=== PATIENT | female | born 1975 | race African-American/Black ===

== ENCOUNTER 2016-12-28 00:18 | Emergency (ER) | payer MEDICAID ==
[2016-12-28] MEDS ORDERED: ONDANSETRON 4 MG TAB.RAPDIS PO ONE (01:35)
[2016-12-28] MEDS ORDERED: KETOROLAC TROMETHAMINE 60 MG/2 ML SDV IM ONE (01:35)
[2016-12-28 01:52] LABS: ABSOLUTE BASOPHILS # (AUTO) 0.2 10^3/uL (0.0-0.2); ABSOLUTE EOSINOPHILS # (AUTO) 0.4 10^3/uL (0.0-0.6); ABSOLUTE LYMPHOCYTES (AUTO) 2.3 10^3/uL (0.5-4.7); ABSOLUTE MONOCYTES (AUTO) 0.5 10^3/uL (0.1-1.4); ABSOLUTE NEUT (AUTO) 5.3 10^3/uL (1.7-8.2); BASOPHILS % (AUTO) 1.8 % (0-2); EOSINOPHILS % (AUTO) 4.1 % (0-6); HEMATOCRIT 34.3 % (36.0-47.0); HGB HCT DIFFERENCE 1.7; LYMPHOCYTES % (AUTO) 26.4 % (13-45); MEAN CORPUSCULAR HEMOGLOBIN 29.4 pg (27.0-33.4); MEAN CORPUSCULAR HGB CONC 34.9 g/dL (32.0-36.0); MEAN CORPUSCULAR VOLUME 84 fl (80-97); RED BLOOD COUNT 4.07 10^6/uL (3.72-5.28); RED CELL DISTRIBUTION WIDTH 13.8 % (11.5-14.0); SEGMENTED NEUTROPHILS % (AUTO) 61.7 % (42-78); WHITE BLOOD COUNT 8.6 10^3/uL (4.0-10.5)
--- NOTE | 2016-12-28 01:53 | ER Document Report ---
ED General - General Mode of Arrival: Ambulatory Information source: Patient TRAVEL OUTSIDE OF THE [place] IN LAST 30 DAYS: No <ZELALEM ESTRELLA - Last Filed: 12/28/16 02:32> <BILLIE FRAIRE - Last Filed: 12/28/16 03:47> - General Chief Complaint: Abdominal Pain Stated Complaint: HEADACHE Time Seen by Provider: 12/28/16 01:26 Notes: Patient is a 41 year old female that presents to the emergency department today with complaints of abdominal pain with associated lightheadedness, headache, nausea, and lower back pain. Patient states that she was cooking dinner when these symptoms began. Patient states she went and laid down. Patient states she has had similar abdominal pain in the past when she had a urinary tract infection. Patient states her headache relieved somewhat after ibuprofen. Patient denies vomiting, history of migraine headaches, or dysuria. (ZELALEM ESTRELLA) Past Medical History - General Information source: Patient - Social History Smoking Status: Current Every Day Smoker Cigarette use (# per day): Yes Frequency of alcohol use: None Drug Abuse: None Lives with: Family Family History: Reviewed & Not Pertinent Patient has suicidal ideation: No Patient has homicidal ideation: No - Past Medical History Cardiac Medical History: Reports: Hx Hypertension Past Surgical History: Reports: Hx Cholecystectomy <ZELALEM ESTRELLA - Last Filed: 12/28/16 02:32> Review of Systems - Review of Systems Constitutional: No symptoms reported EENT: No symptoms reported Cardiovascular: See HPI, Lightheaded Respiratory: No symptoms reported Gastrointestinal: See HPI, Abdominal pain, Nausea. denies: Vomiting Genitourinary: denies: Dysuria Female Genitourinary: No symptoms reported Musculoskeletal: See HPI, Back pain Skin: No symptoms reported Hematologic/Lymphatic: No symptoms reported Neurological/Psychological: See HPI, Headaches -: Yes All other systems reviewed and negative <ZELALEM ESTRELLA - Last Filed: 12/28/16 02:32> Physical Exam <ZELALEM ESTRELLA - Last Filed: 12/28/16 02:32> <BILLIE FRAIRE - Last Filed: 12/28/16 03:47> - Vital signs Vitals: Temp Pulse Resp BP Pulse Ox 98.7 F 98 18 161/100 H 100 12/28/16 00:26 12/28/16 00:12/28/16 00:26 12/28/16 00:26 12/28/16 00:26 - Notes Notes: PHYSICAL EXAM GENERAL: Obese. Alert, interacts well. No acute distress. HEAD: Normocephalic, atraumatic. EYES: Pupils equal, round, and reactive to light. Extraocular movements intact. ENT: Oral mucosa moist, tongue midline. NECK: Full range of motion. Supple. Trachea midline. LUNGS: Clear to auscultation bilaterally, no wheezes, rales, or rhonchi. No respiratory distress. HEART: Regular rate and rhythm. No murmurs, gallops, or rubs. ABDOMEN: Epigastric tenderness with palpation, no guarding, rebound, or rigidity. Non-distended. Bowel sounds present in all 4 quadrants. EXTREMITIES: Moves all 4 extremities spontaneously. No edema, radial and dorsalis pedis pulses 2/4 bilaterally. No cyanosis. NEUROLOGICAL: Alert and oriented x3. Normal speech. PSYCH: Normal affect, normal mood. SKIN: Warm, dry, normal turgor. No rashes or lesions noted. (ZELALEM ESTRELLA) Course - Laboratory Result Diagrams: 12/28/16 01:40 12/28/16 01:40 <ZELALEM ESTRELLA - Last Filed: 12/28/16 02:32> - Laboratory Result Diagrams: 12/28/16 01:40 12/28/16 01:40 <BILLIE FRAIRE - Last Filed: 12/28/16 03:47> - Re-evaluation Re-evalutation: 12/28/16 03:45 CBC unremarkable, CMP unremarkable, lipase normal, test negative, urinalysis shows positive nitrates and trace leukocyte esterase, 3+ bacteria, this was sent for culture, headache was treated and completely resolved with Toradol, this also relieved her epigastric abdominal pain, patient was also treated with Macrobid and Pyridium, all of her symptoms are gone, will be discharged home on ibuprofen, Macrobid and Pyridium. (BILLIE FRAIRE) - Vital Signs Vital signs: Temp Pulse Resp BP Pulse Ox 98.7 F 98 18 163/112 H 100 12/28/16 00:26 12/28/16 00:26 12/28/16 00:26 12/28/16 02:31 12/28/16 00:26 - Laboratory Laboratory results interpreted by me: 12/28/16 12/28/16 01:40 01:45 Hct 34.3 L Urine Nitrite POSITIVE H Ur Leukocyte Esterase TRACE H Discharge <ZELALEM ESTRELLA - Last Filed: 12/28/16 02:32> <BILLIE FRAIRE - Last Filed: 12/28/16 03:47> - Discharge Clinical Impression: Epigastric abdominal pain Urinary tract infection Qualifiers: Urinary tract infection type: acute cystitis Hematuria presence: without hematuria Qualified Code(s): N30.00 - Acute cystitis without hematuria Hypertension Qualifiers: Hypertension type: essential hypertension Qualified Code(s): I10 - Essential ( primary) hypertension Headache Qualifiers: Headache type: unspecified Headache chronicity pattern: unspecified pattern Intractability: not intractable Qualified Code(s): R51 - Headache Condition: Stable Disposition: HOME, SELF-CARE Additional Instructions: Please use ibuprofen (Motrin or Advil) 600-800 mg every 8 hours as needed for pain or fever. You may also use acetaminophen (Tylenol) 1000 mg every 4-6 hours as needed for pain or fever. Please be aware that many medications contain acetaminophen, do not exceed a total of 1000 mg of acetaminophen every 6 hours. Please take the Pyridium as directed for pain. Take the Macrobid as directed until it is gone, this is an antibiotic. Prescriptions: Nitrofurantoin/Nitrofuran Mac [Macrobid 100 mg Capsule] 1 tab PO BID #14 capsule Phenazopyridine HCl [Pyridium 200 mg Tablet] 200 mg PO TID #7 tablet Forms: Parent Work Note Scribe Attestation: 12/28/16 03:47 I personally performed the services described in the documentation, reviewed and edited the documentation which was dictated to the scribe in my presence, and it accurately records my words and actions. (BILLIE FRAIRE) Scribe Documentation - Scribe Written by Nguyen:: Nguyen Winchester, 12/28/2016 0240 acting as scribe for :: Juanito <ZELALEM ESTRELLA - Last Filed: 12/28/16 02:32>
[2016-12-28 02:17] LABS: APPEARANCE,URINE SLIGHTLY-CLOUDY; BILIRUBIN,URINE NEGATIVE (NEGATIVE); GLUCOSE, URINE NEGATIVE (NEGATIVE); KETONES,URINE NEGATIVE (NEGATIVE); LEUKOCYTE ESTERASE,URINE TRACE (NEGATIVE); NITRITE,URINE POSITIVE (NEGATIVE); PROTEIN,URINE NEGATIVE (NEGATIVE); URINE SPECIFIC GRAVITY 1.011; UROBILINOGEN,URINE NEGATIVE mg/dL (<2.0)
[2016-12-28] MEDS ORDERED: NITROFURANTOIN MONOHYD/M-CRYST 100 MG CAPSULE PO ONE (02:46)
[2016-12-28] MEDS ORDERED: PHENAZOPYRIDINE HCL 200 MG TABLET PO ONE (02:46)
[2016-12-28 03:18] LABS: ALANINE AMINOTRANSFERASE 21 U/L (9-52); ALBUMIN 3.5 g/dL (3.5-5.0); ALKALINE PHOSPHATASE 117 U/L (38-126); ANION GAP 11 (5-19); ASPARTATE AMINO TRANSFERASE 16 U/L (14-36); BILIRUBIN,DIRECT 0.3 mg/dL (0.0-0.4); BILIRUBIN,TOTAL 0.5 mg/dL (0.2-1.3); BLOOD UREA NITROGEN 12 mg/dL (7-20); CARBON DIOXIDE 27 mmol/L (22-30); CHLORIDE 105 mmol/L (98-107); GLUCOSE 95 mg/dL (75-110); LIPASE 125.6 U/L (23-300); POTASSIUM 3.9 mmol/L (3.6-5.0); SODIUM 142.6 mmol/L (137-145); TOTAL PROTEIN 6.6 g/dL (6.3-8.2)
[2016-12-28 03:55] VITALS: BP 143/99
== END 2016-12-28 03:57 | disposition home or self-care (01) ==
LOC: ER 00:18
DX: N30.00 Acute cystitis without hematuria (principal); I10 Essential (primary) hypertension; R51 Headache; R10.9 Unspecified abdominal pain; R42 Dizziness and giddiness; R11.0 Nausea; F17.210 Nicotine dependence, cigarettes, uncomplicated
CPT/HCPCS: 99284; 96372; 36415; 87086; 83690; 85025; 81025; 87088; 80053; 81001; 87186; J1885; S0119; J3490 ×2; J8499

== ENCOUNTER 2017-07-12 18:38 | Emergency (ER) | payer MEDICAID ==
[2017-07-12] MEDS ORDERED: ONDANSETRON 4 MG TAB.RAPDIS PO ONE (19:28)
--- NOTE | 2017-07-12 19:28 | ER Document Report ---
ED Medical Screen (RME) - General Chief Complaint: Abdominal Pain Stated Complaint: ABDOMINAL PAIN,NAUSEA,SINUS PAIN Time Seen by Provider: 07/12/17 19:21 TRAVEL OUTSIDE OF THE [place] IN LAST 30 DAYS: No - HPI Notes: 07/12/17 19:28 Abdominal pain with nausea sinus pain Past Medical History - Social History Chew tobacco use (# tins/day): No Frequency of alcohol use: None Drug Abuse: None - Past Medical History Cardiac Medical History: Reports: Hx Hypertension Renal/ Medical History: Denies: Hx Peritoneal Dialysis Past Surgical History: Reports: Hx Cholecystectomy Review of Systems - Review of Systems Gastrointestinal: Abdominal pain Physical Exam - Vital signs Vitals: Temp Pulse Resp BP Pulse Ox 98.2 F 91 16 156/115 H 99 07/12/17 18:52 07/12/17 18:52 07/12/17 18:52 07/12/17 18:52 07/12/17 18:52 - General General appearance: Appears well In distress: None - Abdominal Inspection: Obese Course - Vital Signs Vital signs: Temp Pulse Resp BP Pulse Ox 98.2 F 91 16 156/115 H 99 07/12/17 18:52 07/12/17 18:52 07/12/17 18:52 07/12/17 18:52 07/12/17 18:52
[2017-07-12 20:38] LABS: APPEARANCE,URINE SLIGHTLY-CLOUDY; BILIRUBIN,URINE NEGATIVE (NEGATIVE); COLOR,URINE YELLOW; GLUCOSE, URINE NEGATIVE (NEGATIVE); KETONES,URINE NEGATIVE (NEGATIVE); LEUKOCYTE ESTERASE,URINE LARGE (NEGATIVE); NITRITE,URINE POSITIVE (NEGATIVE); PROTEIN,URINE NEGATIVE (NEGATIVE); URINE SPECIFIC GRAVITY 1.012; UROBILINOGEN,URINE NEGATIVE mg/dL (<2.0)
[2017-07-12 20:39] LABS: ABSOLUTE BASOPHILS # (AUTO) 0.1 10^3/uL (0.0-0.2); ABSOLUTE EOSINOPHILS # (AUTO) 0.3 10^3/uL (0.0-0.6); ABSOLUTE LYMPHOCYTES (AUTO) 2.3 10^3/uL (0.5-4.7); ABSOLUTE MONOCYTES (AUTO) 0.4 10^3/uL (0.1-1.4); ABSOLUTE NEUT (AUTO) 6.2 10^3/uL (1.7-8.2); BASOPHILS % (AUTO) 1.3 % (0-2); EOSINOPHILS % (AUTO) 2.9 % (0-6); HEMOGLOBIN 12.1 g/dL (12.0-15.5); MEAN CORPUSCULAR HEMOGLOBIN 29.2 pg (27.0-33.4); MEAN CORPUSCULAR HGB CONC 33.6 g/dL (32.0-36.0); MEAN CORPUSCULAR VOLUME 87 fl (80-97); MONOCYTES % (AUTO) 4.8 % (3-13); PLATELET COUNT 363 10^3/uL (150-450); RED BLOOD COUNT 4.14 10^6/uL (3.72-5.28); RED CELL DISTRIBUTION WIDTH 13.6 % (11.5-14.0); TOTAL CELLS COUNTED % (AUTO) 100 %; WHITE BLOOD COUNT 9.4 10^3/uL (4.0-10.5)
[2017-07-12 20:40] LABS: ALANINE AMINOTRANSFERASE 22 U/L (9-52); ALBUMIN 3.8 g/dL (3.5-5.0); ALKALINE PHOSPHATASE 102 U/L (38-126); ANION GAP 10 (5-19); ASPARTATE AMINO TRANSFERASE 12 U/L (14-36); BILIRUBIN,DIRECT 0.3 mg/dL (0.0-0.4); BILIRUBIN,TOTAL 0.3 mg/dL (0.2-1.3); BLOOD UREA NITROGEN 8 mg/dL (7-20); CALCIUM 9.4 mg/dL (8.4-10.2); CARBON DIOXIDE 27 mmol/L (22-30); CHLORIDE 102 mmol/L (98-107); GLUCOSE 83 mg/dL (75-110); LIPASE 82.6 U/L (23-300); POTASSIUM 3.7 mmol/L (3.6-5.0); SODIUM 139.3 mmol/L (137-145); TOTAL PROTEIN 7.1 g/dL (6.3-8.2)
[2017-07-12] MEDS ORDERED: NITROFURANTOIN MONOHYD/M-CRYST 100 MG CAPSULE PO ONE (22:03)
[2017-07-12] MEDS ORDERED: SULFAMETHOXAZOLE/TRIMETHOPRIM 800-160 MG TABLET PO ONE (22:05)
[2017-07-12] MEDS ORDERED: ONDANSETRON ODT 4 MG TAB (6 TAB/ER DISP) PO PRN (22:10)
--- NOTE | 2017-07-12 22:10 | ER Document Report ---
ED GI/ - General Chief Complaint: Abdominal Pain Stated Complaint: ABDOMINAL PAIN,NAUSEA,SINUS PAIN Time Seen by Provider: 07/12/17 19:21 Mode of Arrival: Ambulatory Information source: Patient TRAVEL OUTSIDE OF THE [place] IN LAST 30 DAYS: No Past Medical History - Social History Smoking Status: Current Every Day Smoker Chew tobacco use (# tins/day): No Frequency of alcohol use: None Drug Abuse: None Family History: Reviewed & Not Pertinent Patient has suicidal ideation: No Patient has homicidal ideation: No - Past Medical History Cardiac Medical History: Reports: Hx Hypertension Renal/ Medical History: Denies: Hx Peritoneal Dialysis Past Surgical History: Reports: Hx Cholecystectomy Physical Exam - Vital signs Vitals: Temp Pulse Resp BP Pulse Ox 98.2 F 91 16 156/115 H 99 07/12/17 18:52 07/12/17 18:52 07/12/17 18:52 07/12/17 18:52 07/12/17 18:52 Course - Vital Signs Vital signs: Temp Pulse Resp BP Pulse Ox 98.2 F 91 16 156/115 H 99 07/12/17 18:52 07/12/17 18:52 07/12/17 18:52 07/12/17 18:52 07/12/17 18:52 - Laboratory Result Diagrams: 07/12/17 20:15 07/12/17 20:15 Laboratory results interpreted by me: 07/12/17 07/12/17 20:15 20:15 AST 12 L Urine Blood SMALL H Urine Nitrite POSITIVE H Ur Leukocyte Esterase LARGE H Discharge - Discharge Clinical Impression: Essential hypertension Urinary tract infection Qualifiers: Urinary tract infection type: acute cystitis Hematuria presence: without hematuria Qualified Code(s): N30.00 - Acute cystitis without hematuria Condition: Stable Disposition: HOME, SELF-CARE Instructions: Abdominal Pain ([facility]), Trimethoprim-Sulfa ([facility]), Urinary Tract Infection ([facility]), Antinausea Medication ([facility]) Additional Instructions: REST, DRINK PLENTY OF FLUIDS. TAKE YOUR ANTIBIOTIC DIRECTED, BEGINNING TOMORROW A.M. CONTINUE YOUR OTHER MEDS USUAL. FOLLOW UP WITH YOUR PRIMARY CARE PROVIDER FOR RE-CHECK OF BLOOD PRESSURE, YOU MAY NEED TO HAVE YOUR MEDS ADJUSTED. RETURN TO E.R. IF PROBLEMS. Prescriptions: Sulfamethoxazole/Trimethoprim [Sulfamethoxazole-Tmp Ds Tablet] 1 each PO BID # 20 tablet
[2017-07-12 22:20] VITALS: BP 148/104
== END 2017-07-12 22:26 | disposition home or self-care (01) ==
LOC: ER 18:38
DX: N30.00 Acute cystitis without hematuria (principal); I10 Essential (primary) hypertension; Z90.49 Acquired absence of other specified parts of digestive tract
CPT/HCPCS: 99284; 36415; 87086; 84702; 83690; 85025; 87088; 80053; 81001; 87186; S0119; J3490

== ENCOUNTER 2017-08-17 21:20 | Emergency (ER) | payer MEDICAID ==
--- NOTE | 2017-08-17 23:30 | ER Document Report ---
HPI - HPI Pain Level: 3 Notes: Patient is a 41-year-old female with a history of hypertension who presents to the ED complaining of nasal congestion/discharge, sinus pressure and pain, postnasal drip, left ear "clogged" 1 week. Patient states that on occasion she will have a sinus headache, but currently does not have a headache. Patient states that she did not take her evening dose of her blood pressure medication, lisinopril. Patient states that when she gets the symptoms usually goes to her primary care doctor and gets an antibiotic which is what she wants today. She denies any drug allergies. No other concerns or complaints at this time. Denies any headache, fever, neck pain, sore throat, chest pain, palpitations, syncope, cough, shortness of breath, wheeze, dyspnea, abdominal pain, nausea/vomiting/diarrhea, urinary retention, dysuria, hematuria, or rash. - ROS Systems Reviewed and Negative: Yes All other systems reviewed and negative Past Medical History - Social History Smoking Status: Never Smoker Family History: Reviewed & Not Pertinent - Past Medical History Cardiac Medical History: Reports: Hx Hypertension Renal/ Medical History: Denies: Hx Peritoneal Dialysis Past Surgical History: Reports: Hx Cholecystectomy Vertical Provider Document - CONSTITUTIONAL Agree With Documented VS: Yes Notes: PHYSICAL EXAMINATION: GENERAL: Well-appearing, well-nourished and in no acute distress. A&Ox4. Answers questions appropriately. Moves comfortably w/o notable distress HEAD: Atraumatic, normocephalic. EYES: Pupils equal round and reactive to light, extraocular movements intact, sclera anicteric, conjunctiva are normal. ENT: EAC clear b/l. TM's intact b/l without erythema, fluid, or perforation. Nares patent and with clear discharge. oropharynx no erythema without exudates. No tonsilar hypertrophy without erythema or exudate. No palatine shift. Uvula midline. No tongue protrusion. No drooling, hoarseness, or airway compromise. Moist mucous membranes. + maxillary sinus tenderness. NECK: Normal range of motion, supple without lymphadenopathy. No rigidity/ meningismus. LUNGS: Breath sounds clear to auscultation bilaterally and equal. No wheezes rales or rhonchi. No retractions HEART: Regular rate and rhythm without murmurs, rubs, gallops. NEUROLOGICAL: Cranial nerves 2-12 intact. Normal speech, normal gait. Normal sensory, motor exams PSYCH: Normal mood, normal affect. SKIN: Warm, Dry, normal turgor, no rashes or lesions noted. - INFECTION CONTROL TRAVEL OUTSIDE OF THE [place] IN LAST 30 DAYS: No Course - Re-evaluation Re-evalutation: 08/17/17 23:28 Patient is an afebrile, well-hydrated, 41-year-old female who presents to the ED with an acute sinusitis, suspect viral. Vitals are acceptable. PE is otherwise unremarkable for any focal neurological deficits. Patient has no significant tachycardia, tachypnea, or hypoxia. She is tolerating p.o. without any difficulties and is nontoxic-appearing. No labs or imaging warranted at this time based on H&P. I did offer to give patient her evening dose of her lisinopril, but patient declined and states that she will take it when she gets home. Advised patient that I do believe this illness to be viral, but patient is being very persistent and demanding about her antibiotic. Advised patient that I will only send her home with a "pocket prescription" that she may fill with ongoing/worsening symptoms 2-3 days. Conservative measures otherwise for symptoms. Low suspicion for any sepsis, meningitis, or other acute systemic emergent condition at this time. Recheck with your PCM in 2-3 days. Return to the ED with any worsening/concerning symptoms otherwise as reviewed discharge. Patient is in agreement. - Vital Signs Vital signs: Temp Pulse Resp BP Pulse Ox 98.1 F 92 20 156/114 H 99 08/17/17 21:53 08/17/17 21:53 08/17/17 21:53 08/17/17 21:53 08/17/17 21:53 Discharge - Discharge Clinical Impression: Acute sinusitis Qualifiers: Sinusitis location: maxillary Recurrence: not specified as recurrent Qualified Code(s): J01.00 - Acute maxillary sinusitis, unspecified Condition: Stable Disposition: HOME, SELF-CARE Instructions: Headache ([facility]), Sinusitis ([facility]) Additional Instructions: Maintain adequate fluid and food intake Take home medications as directed [id number] meds as needed for cold symptoms Low sodium/fat diet Exercise regularly Monitor blood pressure daily and keep a log Monitor symptoms for any acute changes Recheck with your PCM in 2-3 days Return to the ED with any worsening symptoms and/or development of fever, headache, chest pain, palpitations, syncope, shortness of breath, trouble breathing, abdominal pain, n/v/d, blood in stool/urine, loss of control of bowel /bladder, urinary retention, muscle weakness/paralysis, numbness/tingling, or other worsening symptoms that are concerning to you. Prescriptions: Amox Tr/Potassium Clavulanate [Augmentin 875-125 Tablet] 1 tab PO BID 10 Days # 20 tablet Forms: Elevated Blood Pressure Referrals: FOZIA OLVERA DO [ASSOCIATE] - Follow up as needed
[2017-08-17 23:52] VITALS: BP 155/115
== END 2017-08-17 23:52 | disposition home or self-care (01) ==
LOC: ER 21:20
DX: J01.00 Acute maxillary sinusitis, unspecified (principal); I10 Essential (primary) hypertension; Z90.49 Acquired absence of other specified parts of digestive tract
CPT/HCPCS: 99283

== ENCOUNTER 2017-11-30 13:36 | Emergency (ER) | payer MEDICAID, OTHER ==
[2017-11-30 14:10] VITALS: BP 154/109
[2017-11-30] MEDS ORDERED: ASPIRIN 81 MG TABLET, CHEWABLE PO ONE (14:18)
--- NOTE | 2017-11-30 14:37 | EKG REPORT ---
SEVERITY:- ABNORMAL ECG - SINUS TACHYCARDIA NONSPECIFIC T ABNORMALITIES, INFERIOR LEADS : Confirmed by: Helen Manley MD 30-Nov-2017 14:36:34
--- NOTE | 2017-11-30 14:42 | ER Document Report ---
ED General - General Chief Complaint: Chest Pain Stated Complaint: PAIN ALL OVER Time Seen by Provider: 11/30/17 14:40 Notes: Patient is a 41-year-old female that presents to the emergency department for chief complaint of anxiety and pain all over. Patient states she has been complaining of pain over her whole body that started earlier today, states she has had back pain, chest pain, abdominal pain, pain in her arms and legs, cough and congestion. She is also had decreased appetite over the last several days. Denies any worsening of her symptoms with exertion. Denies vomiting or diaphoresis. She does have fibromyalgia, which occasionally can feel like this but that seems to be a little bit worse today. She also states she has been feeling much more anxious recently and recently she did see the mental health clinic yesterday, and does have an appointment next week with a psychiatrist, and she has been feeling rather anxious about this whole process. Denies any shortness of breath, dysuria, hematuria, and states that she is not . Past Medical History: Fibromyalgia, anxiety, hypertension Past Surgical History: Cholecystectomy, Social History: Admits to smoking cigarettes, denies alcohol or drug use Family History: Reviewed and noncontributory for presenting illness Allergies: Reviewed, see documented allergy list. REVIEW OF SYSTEMS: Unless otherwise stated in this report the patient's positive and negative responses for review of systems for constitutional, eyes, ENT, cardiovascular, respiratory, gastrointestinal, neurological, genitourinary, musculoskeletal, and integumentary systems and related systems to the presenting problem are either as stated in the HPI or were not pertinent or were negative for the symptoms and/or complaints related to the presenting medical problem. PHYSICAL EXAMINATION: Vital signs reviewed, nursing noted reviewed. GENERAL: Well-appearing, well-nourished and in no acute distress. HEAD: Atraumatic, normocephalic. EYES: Eyes appear normal, extraocular movements intact, sclera anicteric, conjunctiva are normal. ENT: nares patent, oropharynx clear without exudates. Moist mucous membranes. NECK: Normal range of motion, supple without lymphadenopathy LUNGS: Breath sounds clear to auscultation bilaterally and equal. No wheezes rales or rhonchi. Reproducible chest wall tenderness HEART: Regular rate and rhythm without murmurs ABDOMEN: Soft, nontender, normoactive bowel sounds. No rebound, guarding, or rigidity. No masses appreciated. EXTREMITIES: Trigger point tenderness bilaterally in the upper and lower extremities, good range of motion, no pitting or edema. NEUROLOGICAL: No focal neurological deficits. Moves all extremities spontaneously Motor and sensory grossly intact on exam. PSYCH: Normal mood, normal affect. SKIN: Warm, Dry, normal turgor, no rashes or lesions noted on exposed skin TRAVEL OUTSIDE OF THE [place] IN LAST 30 DAYS: No - Related Data Allergies/Adverse Reactions: prednisone Adverse Reaction (Verified 08/17/17 23:41) Shortness of Breath Past Medical History - Social History Smoking Status: Current Every Day Smoker Family History: Reviewed & Not Pertinent - Past Medical History Cardiac Medical History: Reports: Hx Hypertension Renal/ Medical History: Denies: Hx Peritoneal Dialysis Psychiatric Medical History: Reports: Hx Depression Past Surgical History: Reports: Hx Cholecystectomy Physical Exam - Vital signs Vitals: Temp Pulse Resp BP Pulse Ox 98.2 F 95 16 154/109 H 100 11/30/17 14:09 11/30/17 14:09 11/30/17 14:09 11/30/17 14:09 11/30/17 14:09 Course - Re-evaluation Re-evalutation: Patient seen and examined vital signs reviewed. Laboratory data and imaging were ordered as appropriate for the patient's presenting symptoms and complaint, with consideration of any critical or life threatening conditions that may be associated with their obtained history and exam as noted above. Patient was treated with IV fluids, Ativan, Zofran Results were reviewed when available and demonstrated unremarkable blood work, negative chest x-ray, negative troponin The patient was re-evaluated and was improved Evaluation was most consistent with viral syndrome, versus fibromyalgia flare, and anxiety Results were discussed with the patient at this point, after careful consideration I feel that that patient can be discharged from the emergency department, the patient was educated treatments and reasons to return to the emergency department based on their presumed diagnosis as noted above, they were advised to followup with a primary care physician in 2-3 days. Patient was agreeable to plan of care. *Note is created using voice recognition software and may contain spelling, syntax or grammatical errors. Laboratory 11/30/17 11/30/17 11/30/17 14:49 14:49 14:49 WBC 8.0 RBC 4.30 Hgb 12.6 Hct 37.0 MCV 86 MCH 29.4 MCHC 34.2 RDW 14.4 H Plt Count 382 Seg Neutrophils % 69.6 Lymphocytes % 21.1 Monocytes % 6.5 Eosinophils % 1.8 Basophils % 1.0 Absolute Neutrophils 5.6 Absolute Lymphocytes 1.7 Absolute Monocytes 0.5 Absolute Eosinophils 0.1 Absolute Basophils 0.1 Sodium 140.1 Potassium 4.4 Chloride 107 Carbon Dioxide 24 Anion Gap 9 BUN 12 Creatinine 1.05 Est GFR ( Amer) > 60 Est GFR (Non-Af Amer) 58 L Glucose 97 Calcium 9.9 Total Bilirubin 0.7 Direct Bilirubin 0.6 H Neonat Total Bilirubin Not Reportable Neonat Direct Bilirubin Not Reportable Neonat Indirect Bili Not Reportable AST 20 ALT 20 Alkaline Phosphatase 88 Creatine Kinase 60 CK-MB (CK-2) < 0.22 Troponin I < 0.012 Total Protein 7.5 Albumin 4.1 Chest X-Ray 11/30/17 14:18 IMPRESSION: NO ACUTE RADIOGRAPHIC FINDING IN THE CHEST. - Vital Signs Vital signs: Temp Pulse Resp BP Pulse Ox 98.2 F 95 14 154/109 H 98 11/30/17 14:09 11/30/17 14:09 11/30/17 14:41 11/30/17 14:09 11/30/17 14:41 - Laboratory Result Diagrams: 11/30/17 14:49 11/30/17 14:49 Laboratory results interpreted by me: 11/30/17 11/30/17 14:49 14:49 RDW 14.4 H Est GFR (Non-Af Amer) 58 L Direct Bilirubin 0.6 H - EKG Interpretation by Me Additional EKG results interpreted by me: EKG demonstrates sinus tachycardia with a ventricular rate of 106 bpm, normal axis, normal intervals, no ST changes noted, no prior EKG available for comparison. Discharge - Discharge Clinical Impression: Myalgia, Anxiety Condition: Stable Disposition: HOME, SELF-CARE Instructions: Anxiety ([facility]) Additional Instructions: Please return to the emergency department if you have any worsening, or concern of your symptoms. Please return to the emergency department if you develop chest pain, difficulty breathing, severe abdominal pain, or ongoing vomiting. Please follow-up with your primary care physician in 2-3 days and any other recommended physicians. If prescribed, take all medications as directed. If you have any questions or concerns do not hesitate to return the emergency department for evaluation. Referrals: JOHN JONES MD [ACTIVE STAFF] - Follow up as needed (or your primary care. )
[2017-11-30] MEDS ORDERED: LORAZEPAM 1 MG TABLET PO ONE (14:54)
[2017-11-30] MEDS ORDERED: NORMAL SALINE 1000 ML 1,000 ML IV ONE (14:55)
[2017-11-30] MEDS ORDERED: ONDANSETRON HCL INJ/PF 4 MG/2 ML SDV IV ONE (14:55)
[2017-11-30 15:10] LABS: ABSOLUTE BASOPHILS # (AUTO) 0.1 10^3/uL (0.0-0.2); ABSOLUTE EOSINOPHILS # (AUTO) 0.1 10^3/uL (0.0-0.6); ABSOLUTE LYMPHOCYTES (AUTO) 1.7 10^3/uL (0.5-4.7); ABSOLUTE MONOCYTES (AUTO) 0.5 10^3/uL (0.1-1.4); ABSOLUTE NEUT (AUTO) 5.6 10^3/uL (1.7-8.2); EOSINOPHILS % (AUTO) 1.8 % (0-6); HEMOGLOBIN 12.6 g/dL (12.0-15.5); LYMPHOCYTES % (AUTO) 21.1 % (13-45); MEAN CORPUSCULAR HEMOGLOBIN 29.4 pg (27.0-33.4); MEAN CORPUSCULAR HGB CONC 34.2 g/dL (32.0-36.0); MEAN CORPUSCULAR VOLUME 86 fl (80-97); MONOCYTES % (AUTO) 6.5 % (3-13); PLATELET COUNT 382 10^3/uL (150-450); RED CELL DISTRIBUTION WIDTH 14.4 % (11.5-14.0); SEGMENTED NEUTROPHILS % (AUTO) 69.6 % (42-78); TOTAL CELLS COUNTED % (AUTO) 100 %
--- NOTE | 2017-11-30 15:11 | RADIOLOGY REPORT (SQ) ---
EXAM DESCRIPTION: CHEST SINGLE VIEW COMPLETED DATE/TIME: 11/30/2017 3:04 pm REASON FOR STUDY: cp COMPARISON: None. EXAM PARAMETERS: NUMBER OF VIEWS: One view. TECHNIQUE: Single frontal radiographic view of the chest acquired. RADIATION DOSE: NA LIMITATIONS: None. FINDINGS: LUNGS AND PLEURA: No opacities, masses or pneumothorax. No pleural effusion. MEDIASTINUM AND HILAR STRUCTURES: No masses. Contour normal. HEART AND VASCULAR STRUCTURES: Heart normal in size. Normal vasculature. BONES: No acute findings. HARDWARE: None in the chest. OTHER: No other significant finding. IMPRESSION: NO ACUTE RADIOGRAPHIC FINDING IN THE CHEST. TECHNICAL DOCUMENTATION: JOB ID: [id number] [employer]- All Rights Reserved Reading location - IP/workstation name: [email or web address]
[2017-11-30 15:21] LABS: ALANINE AMINOTRANSFERASE 20 U/L (9-52); ALBUMIN 4.1 g/dL (3.5-5.0); ALKALINE PHOSPHATASE 88 U/L (38-126); ANION GAP 9 (5-19); ASPARTATE AMINO TRANSFERASE 20 U/L (14-36); BILIRUBIN,DIRECT 0.6 mg/dL (0.0-0.4); BILIRUBIN,TOTAL 0.7 mg/dL (0.2-1.3); BLOOD UREA NITROGEN 12 mg/dL (7-20); CALCIUM 9.9 mg/dL (8.4-10.2); CARBON DIOXIDE 24 mmol/L (22-30); CHLORIDE 107 mmol/L (98-107); CREATINE KINASE 60 U/L (30-135); GLUCOSE 97 mg/dL (75-110); POTASSIUM 4.4 mmol/L (3.6-5.0); SODIUM 140.1 mmol/L (137-145); TOTAL PROTEIN 7.5 g/dL (6.3-8.2)
[2017-11-30 15:32] LABS: CREATINE KINASE MB < 0.22 ng/mL (<4.55); TROPONIN I < 0.012 ng/mL
[2017-11-30 17:09] LABS: APPEARANCE,URINE SLIGHTLY-CLOUDY; BILIRUBIN,URINE NEGATIVE (NEGATIVE); COLOR,URINE YELLOW; GLUCOSE, URINE NEGATIVE (NEGATIVE); KETONES,URINE TRACE mg/dL (NEGATIVE); LEUKOCYTE ESTERASE,URINE NEGATIVE (NEGATIVE); NITRITE,URINE NEGATIVE (NEGATIVE); PROTEIN,URINE NEGATIVE (NEGATIVE); URINE SPECIFIC GRAVITY 1.012; UROBILINOGEN,URINE NEGATIVE mg/dL (<2.0)
== END 2017-11-30 17:05 | disposition home or self-care (01) ==
LOC: ER 13:36
DX: F41.9 Anxiety disorder, unspecified (principal); M79.7 Fibromyalgia; R05 Cough; R00.0 Tachycardia, unspecified; R63.0 Anorexia; I10 Essential (primary) hypertension; F17.210 Nicotine dependence, cigarettes, uncomplicated
CPT/HCPCS: 93005; 99285; 96361; 96374; 36415; 82553; 82550; 85025; 81025; 80053; 81001; 84484; 71045; 93010; J2405

== ENCOUNTER 2017-12-01 19:38 | Emergency (ER) | payer MEDICAID ==
[2017-12-01 19:52] VITALS: BP 180/106
[2017-12-01] MEDS ORDERED: CLONIDINE HCL 0.1 MG TABLET PO ONE (20:43)
[2017-12-01] MEDS ORDERED: LORAZEPAM 1 MG TABLET PO ONE (20:43)
--- NOTE | 2017-12-01 20:46 | ER Document Report ---
ED General - General Chief Complaint: Other Stated Complaint: WEAKNESS/UNABLE TO EAT PAST 8 DAYS Time Seen by Provider: 12/01/17 20:34 Mode of Arrival: Ambulatory Information source: Patient Notes: Chief complaint: Anxiety History of complain:( obtained from----patient) 41 years old female presents today with anxiety, elevated blood pressure. No fever chills or other constitutional symptoms. She has run out of her lorazepam. Has an appointment on Monday for refill. Onset: As above Duration: Gradual Severity: Mild to moderate Quality: None Context: As above Exacerbating factor and relieving factors: As above REVIEW OF SYSTEMS: CONSTITUTIONAL : Denies fever, chills, or sweats. Denies recent illness. EENT: Denies eye, ear, throat, or mouth pain or symptoms. Denies nasal or sinus congestion or discharge. Denies throat, tongue, or mouth swelling or difficulty swallowing. CARDIOVASCULAR: Denies chest pain. Denies palpitations or racing or irregular heart beat. Denies ankle edema. RESPIRATORY: Denies cough, cold, or chest congestion. Denies shortness of breath, difficulty breathing, or wheezing. GASTROINTESTINAL: Denies distention. Denies nausea, vomiting, or diarrhea. Denies blood in vomitus, stools, or per rectum. Denies black, tarry stools. Denies constipation. GENITOURINARY: Denies difficulty urinating, painful urination, burning, frequency, blood in urine, or discharge. FEMALE GENITOURINARY: Denies vaginal bleeding, heavy or abnormal periods, irregular periods. Denies vaginal discharge or odor. MUSCULOSKELETAL: Denies back or neck pain or stiffness. Denies joint pain or swelling. SKIN: Denies rash, lesions or sores. HEMATOLOGIC : Denies easy bruising or bleeding. LYMPHATIC: Denies swollen, enlarged glands. NEUROLOGICAL: Denies confusion or altered mental status. Denies passing out or loss of consciousness. Denies dizziness or lightheadedness. Denies headache. Denies weakness or paralysis or loss of use of either side. Denies problems with gait or speech. Denies sensory loss, numbness, or tingling. Denies seizures. PSYCHIATRIC: Denies anxiety or stress. Denies depression, suicidal ideation, or homicidal ideation. ALL OTHER SYSTEMS REVIEWED AND NEGATIVE. PHYSICAL EXAMINATION: GENERAL: Well-appearing, well-nourished and in no acute distress. HEAD: Atraumatic, normocephalic. EYES: Pupils equal round and reactive to light, extraocular movements intact, conjunctiva are normal. ENT: Nares patent, oropharynx clear without exudates. Moist mucous membranes. NECK: Normal range of motion, supple without lymphadenopathy LUNGS: Breath sounds clear to auscultation bilaterally and equal. No wheezes rales or rhonchi. HEART: Regular rate and rhythm without murmurs ABDOMEN: Soft, nontender, nondistended abdomen. No guarding, no rebound. No masses appreciated. Examination of genitals-deferred Musculoskeletal: Normal range of motion, no pitting or edema. No cyanosis. NEUROLOGICAL: Cranial nerves grossly intact. Normal speech, normal gait. Normal sensory, motor exams PSYCH: Normal mood, normal affect. SKIN: Warm, Dry, normal turgor, no rashes or lesions noted. Dictation was performed using [employer] voice recognition software TRAVEL OUTSIDE OF THE [place] IN LAST 30 DAYS: No - HPI Notes: Dictated - Related Data Allergies/Adverse Reactions: prednisone Adverse Reaction (Verified 08/17/17 23:41) Shortness of Breath Past Medical History - Social History Smoking Status: Current Every Day Smoker Chew tobacco use (# tins/day): No Frequency of alcohol use: None Drug Abuse: None Lives with: Family Family History: Reviewed & Not Pertinent Patient has suicidal ideation: No Patient has homicidal ideation: No - Past Medical History Cardiac Medical History: Reports: Hx Hypertension Renal/ Medical History: Denies: Hx Peritoneal Dialysis Psychiatric Medical History: Reports: Hx Depression Past Surgical History: Reports: Hx Cholecystectomy Review of Systems - Review of Systems Notes: Dictated Physical Exam - Vital signs Vitals: Temp Pulse Resp BP Pulse Ox 98.1 F 87 22 H 180/106 H 99 12/01/17 19:50 12/01/17 19:50 12/01/17 19:50 12/01/17 19:50 12/01/17 19:50 - Notes Notes: Dictated Course - Re-evaluation Re-evalutation: 12/01/17 20:45 Given clonidine, as well as lorazepam. - Vital Signs Vital signs: Temp Pulse Resp BP Pulse Ox 98.1 F 87 22 H 180/106 H 99 12/01/17 19:50 12/01/17 19:50 12/01/17 19:50 12/01/17 19:50 12/01/17 19:50 Discharge - Discharge Clinical Impression: Anxiety Hypertension Qualifiers: Hypertension type: essential hypertension Qualified Code(s): I10 - Essential ( primary) hypertension Condition: Fair Disposition: HOME, SELF-CARE Instructions: Anxiety (OM), High Blood Pressure ([facility]) Prescriptions: Lorazepam 1 mg PO BID #14 tablet
== END 2017-12-01 20:55 | disposition home or self-care (01) ==
LOC: ER 19:38
DX: F41.9 Anxiety disorder, unspecified (principal); I10 Essential (primary) hypertension; R53.83 Other fatigue; F17.200 Nicotine dependence, unspecified, uncomplicated; Z90.49 Acquired absence of other specified parts of digestive tract
CPT/HCPCS: 99283; J3490

== ENCOUNTER 2018-01-05 09:41 | Emergency (ER) | payer MEDICAID ==
--- NOTE | 2018-01-05 11:05 | RADIOLOGY REPORT (SQ) ---
EXAM DESCRIPTION: CHEST 2 VIEWS COMPLETED DATE/TIME: 01/05/2018 10:56 am REASON FOR STUDY: persistent cough COMPARISON: None. EXAM PARAMETERS: NUMBER OF VIEWS: two views TECHNIQUE: Digital Frontal and Lateral radiographic views of the chest acquired. RADIATION DOSE: NA LIMITATIONS: none FINDINGS: LUNGS AND PLEURA: No opacities, masses or pneumothorax. No pleural effusion. MEDIASTINUM AND HILAR STRUCTURES: No masses or contour abnormalities. HEART AND VASCULAR STRUCTURES: Heart normal size. No evidence for failure. BONES: No acute findings. HARDWARE: None in the chest. OTHER: No other significant finding. IMPRESSION: 1. NO ACUTE RADIOGRAPHIC FINDING IN THE CHEST. TECHNICAL DOCUMENTATION: JOB ID: [id number] [employer]- All Rights Reserved Reading location - IP/workstation name: [email or web address]
--- NOTE | 2018-01-05 12:27 | ER Document Report ---
ED General - General Chief Complaint: Sore Throat Stated Complaint: SORE THROAT Time Seen by Provider: 01/05/18 09:56 Mode of Arrival: Ambulatory TRAVEL OUTSIDE OF THE [place] IN LAST 30 DAYS: No - HPI Patient complains to provider of: sore throat Onset: Other - 42-year-old female that presents for evaluation of a sore throat over the last 2 days after having had a cough for approximately 2 months in the setting of being a chronic smoker that any other obvious health problems. Nothing is made it any better nothing makes it worse. She denies any chest pain , palpitations, lightheadedness, diaphoresis, congestion, abdominal pain diarrhea constipation dysuria. No rashes or other symptoms. She has not tried anything to try and help this feel better other than some Tylenol which did seem to help a little bit. - Related Data Allergies/Adverse Reactions: prednisone Adverse Reaction (Verified 01/05/18 09:42) Shortness of Breath Past Medical History - General Information source: Patient - Social History Smoking Status: Current Every Day Smoker Chew tobacco use (# tins/day): No Frequency of alcohol use: None Drug Abuse: None Family History: Reviewed & Not Pertinent Patient has suicidal ideation: No Patient has homicidal ideation: No - Past Medical History Cardiac Medical History: Reports: Hx Hypertension Renal/ Medical History: Denies: Hx Peritoneal Dialysis Psychiatric Medical History: Reports: Hx Depression Past Surgical History: Reports: Hx Section, Hx Cholecystectomy Review of Systems - Review of Systems -: Yes All other systems reviewed and negative Physical Exam - Vital signs Vitals: Temp Pulse Resp BP Pulse Ox 98.4 F 91 16 156/121 H 97 01/05/18 09:44 01/05/18 09:44 01/05/18 09:44 01/05/18 09:44 01/05/18 09:44 - General General appearance: Appears well In distress: None - HEENT Head: Normocephalic Eyes: Normal Conjunctiva: Normal Cornea: Normal Extraocular movements intact: Yes Eyelashes: Normal Pupils: PERRL - Respiratory Respiratory status: No respiratory distress Chest status: Nontender Breath sounds: Normal Chest palpation: Normal - Cardiovascular Rhythm: Regular Heart sounds: Normal auscultation Murmur: No - Abdominal Inspection: Normal Distension: No distension Tenderness: Nontender - Back Back: Normal - Extremities General upper extremity: Normal inspection, Nontender, Normal strength, Normal temperature - Neurological Neuro grossly intact: Yes Cognition: Normal Orientation: AAOx4 [place] Coma Scale Eye Opening: Spontaneous [place] Coma Scale Verbal: Oriented [place] Coma Scale Motor: Obeys Commands [place] Coma Scale Total: 15 Speech: Normal Cranial nerves: Normal Cerebellar coordination: Normal Motor strength normal: LUE, RUE, LLE, RLE - Psychological Associated symptoms: Normal affect Course - Re-evaluation Re-evalutation: 01/05/18 17:47 This is a healthy smoker presents for sore throat. She does have a cough which is chronic without any obvious symptoms to suggest a more serious underlying addition such as but not limited to Jesus Alberto's angina, epiglottitis, meningitis, retropharyngeal abscess. We will obtain an x-ray of the chest for her chronic cough and a strep swab. Strep swab is negative, chest x-ray is unremarkable, there is no suggestion that this patient at this time has an obvious pulmonary nodule suggestive of some more serious underlying cause such as tuberculosis. Because I do not believe that this patient has tuberculosis or some other more serious underlying pulmonary cause we will treat her symptomatically with naproxen and discharged home. Current plan is for patient undergo discharge home with return precautions and encouraged follow-up with her primary physician. - Vital Signs Vital signs: Temp Pulse Resp BP Pulse Ox 98.2 F 75 16 156/111 H 100 01/05/18 12:40 01/05/18 12:40 01/05/18 12:40 01/05/18 12:40 01/05/18 12:40 Discharge - Discharge Clinical Impression: Sore throat, Cough Condition: Good Disposition: HOME, SELF-CARE Instructions: Sore Throat ([facility]) Additional Instructions: Your seen today in the emergency department for your sore throat and cough. Stop smoking that will help with your cough. Use the cough Perles as needed for your cough. Return for worsening fevers or chills inability to eat or drink or throwing up. Use liquid Benadryl to help with your sore throat as well as saline gargles and Motrin. Schedule an appointment with your primary physician this week for your ongoing symptoms. Prescriptions: Naproxen Sodium [Naproxen Sodium Ds] 550 mg PO BID PRN 15 Days #30 tablet PRN Reason: For Pain Scale 3-5 Forms: Elevated Blood Pressure
[2018-01-05 12:59] VITALS: BP 156/111
== END 2018-01-05 12:59 | disposition home or self-care (01) ==
LOC: ER 09:41
DX: J02.9 Acute pharyngitis, unspecified (principal); R05 Cough; I10 Essential (primary) hypertension; F17.200 Nicotine dependence, unspecified, uncomplicated
CPT/HCPCS: 71046; 87070; 87077; 87880; 99283

== ENCOUNTER 2018-01-05 23:06 | Emergency (ER) | payer MEDICAID ==
[2018-01-06] MEDS ORDERED: KETOROLAC TROMETHAMINE 60 MG/2 ML SDV IM ONE (00:17)
[2018-01-06] MEDS ORDERED: LIDOCAINE 2% VISCOUS SOLN 20 ML UDCUP PO ONE (00:17)
[2018-01-06] MEDS ORDERED: LISINOPRIL 10 MG TABLET PO ONE (00:20)
--- NOTE | 2018-01-06 00:26 | ER Document Report ---
HPI - HPI Pain Level: 5 Notes: Patient is a 42-year-old female with a history of hypertension who presents to the ED complaining of a continued sore throat since her visit this morning. She has had a sore throat for 2 days. Patient states that she has pain with swallowing which has remained unchanged, and wants something to "fix it." Her rapid strep was negative with a throat culture pending. She is otherwise still able to eat and drink, but does have discomfort with swallowing. She has not had any hoarseness or drooling. She states that she has an allergy to steroids. Denies any headache, fever, neck pain, URI, chest pain, palpitations , syncope, shortness of breath, wheeze, dyspnea, abdominal pain, nausea/vomiting /diarrhea, urinary retention, dysuria, hematuria, or rash. - ROS Systems Reviewed and Negative: Yes All other systems reviewed and negative - CONSTITUTIONAL Constitutional: REPORTS: Chills. DENIES: Fever - EENT EENT: REPORTS: Sore Throat. DENIES: Ear Pain, Eye problems - NEURO Neurology: DENIES: Headache - CARDIOVASCULAR Cardiovascular: DENIES: Chest pain - RESPIRATORY Respiratory: DENIES: Trouble Breathing, Coughing - GASTROINTESTINAL Gastrointestinal: DENIES: Abdominal Pain, Black / Bloody Stools - URINARY Urinary: DENIES: Dysuria, Urgency, Frequency - MUSCULOSKELETAL Musculoskeletal: DENIES: Extremity pain Past Medical History - Social History Smoking Status: Current Every Day Smoker Chew tobacco use (# tins/day): No Frequency of alcohol use: None Drug Abuse: None Family History: Reviewed & Not Pertinent Patient has suicidal ideation: No Patient has homicidal ideation: No - Past Medical History Cardiac Medical History: Reports: Hx Hypertension Renal/ Medical History: Denies: Hx Peritoneal Dialysis Psychiatric Medical History: Reports: Hx Depression Past Surgical History: Reports: Hx Section, Hx Cholecystectomy Vertical Provider Document - CONSTITUTIONAL Agree With Documented VS: Yes Notes: PHYSICAL EXAMINATION: GENERAL: Well-appearing, well-nourished and in no acute distress. A&Ox4. Answers questions appropriately. Moves comfortably w/o notable distress HEAD: Atraumatic, normocephalic. EYES: Pupils equal round and reactive to light, extraocular movements intact, sclera anicteric, conjunctiva are normal. ENT: EAC clear b/l. TM's intact b/l without erythema, fluid, or perforation. Nares patent and without discharge. oropharynx erythematous. 2+ tonsilar hypertrophy b/l with erythema and b/l exudates. No palatine shift. Uvula midline. No tongue protrusion. No drooling, hoarseness, or airway compromise. Moist mucous membranes. No sinus tenderness. No muffled voice. NECK: Normal range of motion, supple without lymphadenopathy. No rigidity/ meningismus. LUNGS: Breath sounds clear to auscultation bilaterally and equal. No wheezes rales or rhonchi. No retractions HEART: Regular rate and rhythm without murmurs, rubs, gallops. ABDOMEN: Soft, nontender, nondistended abdomen. No guarding, no rebound. No masses appreciated. Normal bowel sounds present. No CVA tenderness bilaterally. No obvious hepatosplenomegaly, but pt is obese and difficult to assess fully. NEUROLOGICAL: Normal speech, normal gait. PSYCH: Normal mood, normal affect. SKIN: Warm, Dry, normal turgor, no rashes or lesions noted. - INFECTION CONTROL TRAVEL OUTSIDE OF THE [place] IN LAST 30 DAYS: No Course - Re-evaluation Re-evalutation: 01/06/18 00:23 Patient is an afebrile, well-hydrated, 42-year-old female who presents to the ED with acute pharyngitis, suspect viral. Vitals are acceptable without significant tachycardia, tachypnea, or hypoxia. Patient did not take her blood pressure medication this evening so her lisinopril was given to her p.o. Patient has an allergy to steroids which causes shortness of breath and does not want any Decadron because of this. Toradol given IM today. Viscous lidocaine also dispensed for her today. Patient is nontoxic-appearing and is tolerating p.o. without difficulties. She has not had any physical exam findings consistent for concerning peritonsillar/pharyngeal abscess. Low suspicion for any meningitis, sepsis, peritonsillar/pharyngeal abscess, airway compromise, Jesus Alberto's, or other emergent systemic condition at this time. Patient is aware this condition can change from initial presentation and she needs to monitor symptoms closely. I will send her home with a Magic mouthwash prescription. Conservative measures otherwise for symptoms. Recheck with your PCM in 2-3 days. Return to the ED with any worsening/concerning symptoms otherwise as reviewed in discharge. Patient is in agreement. - Vital Signs Vital signs: Temp Pulse Resp BP Pulse Ox 99.1 F 98 14 171/114 H 100 01/05/18 23:11 01/05/18 23:11 01/05/18 23:11 01/05/18 23:11 01/05/18 23:11 Discharge - Discharge Clinical Impression: Acute pharyngitis, unspecified Qualifiers: Pharyngitis/tonsillitis etiology: unspecified etiology Qualified Code(s): J02.9 - Acute pharyngitis, unspecified Condition: Stable Disposition: HOME, SELF-CARE Instructions: Sore Throat ([facility]) Additional Instructions: Maintain adequate fluid intake Take meds as directed Salt water gargles, throat sprays, mouthwash rinse, peroxide gargles tylenol/ibuprofen as needed over the counter cold medication as needed for symptoms F/u: with your PCM in 2-3 days for a recheck Consider consult with ENT for ongoing/worsening symptoms Return to the ED with any fever, worsening pain, chest pain, neck pain/stiffness , shortness of breath, cough, drooling, hoarseness, trouble swallowing/breathing , abdominal pain, n/v/d, rash, or worsening/concerning symptoms otherwise. Prescriptions: Nystatin/Dexameth/Diphen [Magic Mouthwash ([facility] Formula) Susp] 5 ml PO QID #120 ml Forms: Elevated Blood Pressure, Smoking Cessation Education Referrals: FOZIA OLVERA DO [ASSOCIATE] - 01/08/18
[2018-01-06 00:46] VITALS: BP 140/88
== END 2018-01-06 00:50 | disposition home or self-care (01) ==
LOC: ER 23:06
DX: J02.9 Acute pharyngitis, unspecified (principal); R13.10 Dysphagia, unspecified; F17.200 Nicotine dependence, unspecified, uncomplicated; I10 Essential (primary) hypertension
CPT/HCPCS: 99282; 96372; J1885; J3490 ×2

== ENCOUNTER 2018-04-29 22:44 | Emergency (ER) | payer MEDICAID ==
[2018-04-30] MEDS ORDERED: METOCLOPRAMIDE HCL INJ/PF 10 MG/2 ML SDV IV ONE (00:41)
[2018-04-30] MEDS ORDERED: DIPHENHYDRAMINE HCL 50 MG/ML VIAL IV ONE (01:39)
--- NOTE | 2018-04-30 02:28 | ER Document Report ---
ED Headache - General Chief Complaint: Headache Stated Complaint: HEADACHE Time Seen by Provider: 04/30/18 00:30 Notes: Patient is a 42-year-old female that comes to the emergency department chief complaint of a headache. She states headache started earlier in the day, started getting worse, she started taking Tylenol and [id number] medication for it, she states it got worse again and she started having nausea and a throbbing sensation over the front of her head. She states she has had similar headaches in the past, she states she has had imaging of her head in the past as well. She does not take any daily medications for migraines. She is not on a blood thinner. She denies fever, neck pain, head injury. TRAVEL OUTSIDE OF THE [place] IN LAST 30 DAYS: No - Related Data Allergies/Adverse Reactions: prednisone Adverse Reaction (Verified 01/05/18 09:42) Shortness of Breath Past Medical History - General Information source: Patient - Social History Smoking Status: Never Smoker Frequency of alcohol use: None Drug Abuse: None Lives with: Family Family History: Reviewed & Not Pertinent Patient has suicidal ideation: No Patient has homicidal ideation: No - Past Medical History Cardiac Medical History: Reports: Hx Hypertension Renal/ Medical History: Denies: Hx Peritoneal Dialysis Psychiatric Medical History: Reports: Hx Depression Past Surgical History: Reports: Hx Section, Hx Cholecystectomy - Immunizations Immunizations up to date: Yes Hx Diphtheria, Pertussis, Tetanus Vaccination: Yes Review of Systems - Review of Systems Constitutional: No symptoms reported EENT: No symptoms reported Cardiovascular: No symptoms reported Respiratory: No symptoms reported Gastrointestinal: See HPI Genitourinary: No symptoms reported Female Genitourinary: No symptoms reported Musculoskeletal: No symptoms reported Skin: No symptoms reported Hematologic/Lymphatic: No symptoms reported Neurological/Psychological: See HPI Physical Exam - Vital signs Vitals: Temp Pulse Resp BP Pulse Ox 97.8 F 96 17 159/114 H 100 04/30/18 01:39 04/30/18 01:39 04/30/18 01:39 04/30/18 01:39 04/30/18 01:39 - Notes Notes: GENERAL: Alert, interacts well. No acute distress. HEAD: Normocephalic, atraumatic. EYES: Pupils equal, round, and reactive to light. Extraocular movements intact. ENT: Oral mucosa moist, tongue midline. Oropharynx unremarkable. Airway patent. Nares patent, no nasal septal hematoma, TM's intact. NECK: Full range of motion. Supple. Trachea midline. LUNGS: Clear to auscultation bilaterally, no wheezes, rales, or rhonchi. No respiratory distress. HEART: Regular rate and rhythm. No murmur ABDOMEN: Soft, non-tender. Non-distended. Bowel sounds present in all 4 q uadrants. GENITOURINARY: Deferred EXTREMITIES: Moves all 4 extremities spontaneously. No edema, normal radial and dorsalis pedis pulses bilaterally. No cyanosis. BACK: no cervical, thoracic, lumbar midline tenderness. No saddle anesthesia, normal distal neurovascular exam. NEUROLOGICAL: Alert and oriented x3. Normal speech. [cranial nerves II through XII grossly intact]. PSYCH: Normal affect, normal mood. SKIN: Warm, dry, normal turgor. No rashes or lesions noted. Course - Re-evaluation Re-evalutation: Patient is smiling and very well-appearing. She reports gradually worsening symptoms, she does describe migraine-like symptoms with throbbing pain behind one eye with nausea and photophobia. Patient given Reglan, will reevaluate. On reevaluation patient is very anxious, she states she feels extremely restless and like she cannot hold still, however she states her headache is completely gone. I suspect she is having side effects of the Reglan. She was given Benadryl. Will reevaluate. After evaluation, symptoms of restlessness and anxiety have completely resolved. Headache is completely gone as well per patient. She is requesting to leave. I have low suspicion of emergent etiology based on patient's benign appearance, symptom resolution, and characterization of the headache. Provided with Fioricet for home, discussed primary care follow-up and return precautions. She states understanding and agreement. - Vital Signs Vital signs: Temp Pulse Resp BP Pulse Ox 97.8 F 73 16 148/93 H 100 04/30/18 02:46 04/30/18 02:46 04/30/18 02:46 04/30/18 02:46 04/30/18 02:46 Discharge - Discharge Clinical Impression: Headache Qualifiers: Headache type: unspecified Headache chronicity pattern: acute headache Intractability: not intractable Qualified Code(s): R51 - Headache Condition: Stable Disposition: HOME, SELF-CARE Additional Instructions: Your evaluation, symptoms, and resolution with treatment are very suggestive of a migraine. You can take the prescribed medication if needed for headaches in the future. Follow-up with primary care for additional evaluation and management of migraines. Return if you worsen including returned or severe headache, vomiting, fever, or any other concerning or worsening symptoms. Prescriptions: Butalb/Acetaminophen/Caffeine [Fioricet (50-325-40 mg) Tablet] 1 tab PO Q4HP PRN #20 tab PRN Reason: Forms: Elevated Blood Pressure
[2018-04-30 02:47] VITALS: BP 148/93
== END 2018-04-30 03:05 | disposition home or self-care (01) ==
LOC: ER 22:44
DX: R51 Headache (principal); R11.0 Nausea; F41.9 Anxiety disorder, unspecified; I10 Essential (primary) hypertension; H53.149 Visual discomfort, unspecified
CPT/HCPCS: 99283; 96374; 96375; J1200; J2765

== ENCOUNTER 2018-05-02 11:34 | Emergency (ER) | payer MEDICAID ==
[2018-05-02] MEDS ORDERED: LIDOCAINE 2% VISCOUS SOLN 20 ML UDCUP PO ONE (11:53)
[2018-05-02 11:57] VITALS: BP 153/110
--- NOTE | 2018-05-02 12:09 | ER Document Report ---
HPI - HPI Pain Level: 4 Notes: Patient is a 42-year-old female who presents to the ED complaining of Rt upper dental pain #5 x3-4 days with possible abscess x2 days. Patient states that she does have swelling to the roof of mouth and had purulent discharge expressed earlier today. Patient states that she is still able to eat and drink, but does have a decreased p.o. intake due to the pain. She has tried some [id number] meds with minimal relief. No other concerns or complaints. D enies any headache, fever, head injury, neck pain, hoarseness, drooling, URI, sore throat, chest pain, palpitations, syncope, cough, shortness of breath, wheeze, dyspnea, abdominal pain, nausea/vomiting/diarrhea, urinary retention, dysuria, hematuria, or rash. - ROS Systems Reviewed and Negative: Yes All other systems reviewed and negative - REPRODUCTIVE Reproductive: DENIES: : Past Medical History - Social History Smoking Status: Current Every Day Smoker Family History: Reviewed & Not Pertinent Patient has suicidal ideation: No Patient has homicidal ideation: No - Past Medical History Cardiac Medical History: Reports: Hx Hypertension Renal/ Medical History: Denies: Hx Peritoneal Dialysis Psychiatric Medical History: Reports: Hx Depression Past Surgical History: Reports: Hx Section, Hx Cholecystectomy - Immunizations Immunizations up to date: Yes Hx Diphtheria, Pertussis, Tetanus Vaccination: Yes Vertical Provider Document - CONSTITUTIONAL Agree With Documented VS: Yes Notes: PHYSICAL EXAMINATION: GENERAL: Well-appearing, well-nourished and in no acute distress. HEAD: Atraumatic, normocephalic. EYES: Pupils equal round and reactive to light, extraocular movements intact, sclera anicteric, conjunctiva are normal. ENT: EAC clear b/l. TM's intact b/l without erythema, fluid, or perforation. Nares patent and without discharge. oropharynx clear without exudates. No tonsilar hypertrophy or erythema. Moist mucous membranes. No sinus tenderness. Uvula midline. No palatine shift. No tongue protrusion. No respiratory compromise. Mouth: Poor dentition. + mild decay and mild gingivitis. + small fluctuant abscess to the rt roof of mouth near #5. No facial swelling. + tenderness to tooth #5. NECK: Normal range of motion, supple without lymphadenopathy. No rigidity/meningismus. LUNGS: Breath sounds clear to auscultation bilaterally and equal. No wheezes rales or rhonchi. HEART: Regular rate and rhythm without murmurs, rubs, gallops. NEUROLOGICAL: Cranial nerves grossly intact. Normal speech, normal gait. PSYCH: Normal mood, normal affect. SKIN: Warm, Dry, normal turgor, no rashes or lesions noted. - INFECTION CONTROL TRAVEL OUTSIDE OF THE [place] IN LAST 30 DAYS: No Course - Re-evaluation Re-evalutation: 05/02/18 12:07 Patient is an afebrile, well-hydrated, 42-year-old female who presents to the ED with dental pain and infection. Vitals are acceptable. PE is otherwise unremarkable. No labs or imaging warranted at this time based on H&P. I&D performed successfully w/o complications. Viscous lidocaine dispensed today. I will send her home with a prescription for cleocin. Low suspicion for any meningitis, sepsis, peritonsillar/pharyngeal abscess, respiratory compromise, Jesus Alberto's, temporal arteritis, or other emergent systemic condition at this time. Patient is aware this condition can change from initial presentation and she needs to monitor symptoms closely. Conservative measures otherwise for symptoms. Call to schedule an appointment with a dentist for further evaluation and management. Recheck with your PCM this week as well. Return to the ED with any worsening/concerning symptoms otherwise as reviewed in discharge. Patient is in agreement. - Vital Signs Vital signs: Temp Pulse Resp BP Pulse Ox 98.5 F 93 16 153/110 H 97 05/02/18 11:52 05/02/18 11:52 05/02/18 11:52 05/02/18 11:52 05/02/18 11:52 Procedures - Incision and Drainage Mouth Time completed: 12:05 Type: Simple Anesthetic type: Other - topical lidocaine Blade size: 11 Incision Method: Incision made by scalpel Amount/type of drainage: mostly blood, scant to no purulence Discharge - Discharge Clinical Impression: Dental abscess Condition: Stable Disposition: HOME, SELF-CARE Instructions: Clindamycin ([facility]), Toothache ([facility]) Additional Instructions: [place] and floss twice daily Maintain fluid intake Take antibiotics as directed Mouthwash, salt water gargles/rinses Tylenol/ibuprofen as needed Recheck with PCM this week Call today/tomorrow and schedule an appointment with your dentist for further evaluation Return to the ED with any worsening symptoms and/or development of fever, headache, facial swelling, swelling of lips/tongue/throat, trouble swallowing, drooling, hoarseness, neck pain/stiffness, chest pain, palpitations, syncope, shortness of breath, trouble breathing, abdominal pain, n/v/d, numbness/tingling, or other worsening symptoms that are concerning to you. Prescriptions: Clindamycin HCl [Cleocin 300 mg Capsule] 300 mg PO TID #30 capsule Forms: Elevated Blood Pressure, Smoking Cessation Education Referrals: [facility] [Provider Group] - Follow up as needed FERDINAND BA MD [ACTIVE STAFF] - Follow up as needed
== END 2018-05-02 12:24 | disposition home or self-care (01) ==
LOC: ER 11:34
DX: K04.7 Periapical abscess without sinus (principal); K12.2 Cellulitis and abscess of mouth; K02.9 Dental caries, unspecified; K05.10 Chronic gingivitis, plaque induced; K08.89 Other specified disorders of teeth and supporting structures; I10 Essential (primary) hypertension; F17.200 Nicotine dependence, unspecified, uncomplicated
CPT/HCPCS: 99283; 40800; J3490

== ENCOUNTER 2018-10-06 03:13 | Emergency (ER) | payer MEDICAID ==
[2018-10-06] MEDS ORDERED: CLONAZEPAM 1 MG TABLET PO ONE (04:41)
--- NOTE | 2018-10-06 04:41 | ER Document Report ---
ED General - General Chief Complaint: Dizziness Stated Complaint: DIZZINESS Time Seen by Provider: 10/06/18 04:40 Notes: Patient is a pleasant 42-year-old female presents with complaints of dizziness and rapid heartbeat. She says the last 2 days she has had gradually worsening periods of says it may be panic attacks also increased anxiety and fullness of her heart is beating fast and she becomes dizzy. No chest pain. No fevers. No recent infections. She did run out of her Klonopin 2 days ago. She takes 0.5 mg twice a day. She says she is noticed that since she ran out of medication her symptoms have started. No other complaints at this time. Her follow-up appointment with her doctor to get a new prescription is on October 09. TRAVEL OUTSIDE OF THE [place] IN LAST 30 DAYS: No - Related Data Allergies/Adverse Reactions: prednisone Adverse Reaction (Verified 05/02/18 11:35) Shortness of Breath Past Medical History - Social History Smoking Status: Current Every Day Smoker Frequency of alcohol use: None Drug Abuse: None Family History: Reviewed & Not Pertinent Patient has suicidal ideation: No Patient has homicidal ideation: No - Past Medical History Cardiac Medical History: Reports: Hx Hypertension Renal/ Medical History: Denies: Hx Peritoneal Dialysis Psychiatric Medical History: Reports: Hx Depression Past Surgical History: Reports: Hx Section, Hx Cholecystectomy - Immunizations Immunizations up to date: Yes Hx Diphtheria, Pertussis, Tetanus Vaccination: Yes Review of Systems - Review of Systems Notes: My Normal Review Basic REVIEW OF SYSTEMS: CONSTITUTIONAL : Denies fever, chills, or sweats. Denies recent illness. EENT: Denies eye, ear, throat, or mouth pain or symptoms. Denies nasal or sinus congestion. CARDIOVASCULAR: Palpitations RESPIRATORY: Denies cough, cold, or chest congestion. Denies shortness of breath, difficulty breathing, or wheezing. GASTROINTESTINAL: Denies abdominal pain. Denies nausea, vomiting, or diarrhea. MUSCULOSKELETAL: Denies neck or back pain or joint pain or swelling. SKIN: Denies rash or skin lesions. NEUROLOGICAL: Denies altered mental status or loss of consciousness. Denies headache. Denies weakness or paralysis or loss of use of either side. Denies problems with gait or speech. Denies sensory or motor loss. ALL OTHER SYSTEMS REVIEWED AND NEGATIVE. Physical Exam - Vital signs Vitals: Temp Pulse Resp BP Pulse Ox 97.8 F 150 H 20 144/90 H 100 10/06/18 03:18 10/06/18 03:18 10/06/18 03:18 10/06/18 03:18 10/06/18 03:18 - Notes Notes: General Appearance: Well nourished, alert, cooperative, no acute distress, no obvious discomfort. Well-appearing Vitals: reviewed, See vital signs table. Eyes: PERRL, EOMI, Conjuctiva clear Mouth: No decreasd moisture Throat: No tonsillar inflammation, No airway obstruction, No lymphadenopathy Neck: Supple, no neck tenderness, No thyromegaly Lungs: No wheezing, No rales, No rhonci, No accessory muscle use, good air exchange bilaterally. Heart: Tachycardic rate, Regular rythm, No murmur, no rub Abdomen: Normal BS, soft, No rigidity, No abdominal tenderness, No guarding, no rebound, no abdominal masses, no organomegaly Extremities: strength 5/5 in all extremities, good pulses in all extremities, no swelling or tenderness in the extremities, no edema. Skin: warm, dry, appropriate color, no rash Neuro: speech clear, oriented x 3, normal affect, responds appropriately to questions. Course - Re-evaluation Re-evalutation: 10/06/18 06:14 Patient's heart rate quickly improved after receiving the Klonopin. Heart rate is now in the upper 70s low 80s. Heart rate is 140 when she first arrived. After she rested and relaxed some her heart rate went down to the 100s and then after the Klonopin her heart rate normalized. She looks well. She has no further concerns at this time. she has no chest pain. She has no shortness of breath. I feel she safe to be discharged home. However prescription for Klonopin to get her through until her next appointment in 3 days. Encourage return to ER if she has further concerns or feels unwell. I did look up on the prescription database and she did run out of the Klonopin at the appropriate time based on her most recent prescription. Dictation of this chart was performed using voice recognition software; therefore, there may be some unintended grammatical errors. - Vital Signs Vital signs: Temp Pulse Resp BP Pulse Ox 97.8 F 150 H 15 125/86 H 96 10/06/18 03:18 10/06/18 03:18 10/06/18 05:01 10/06/18 05:01 10/06/18 05:01 - Laboratory Result Diagrams: 10/06/18 04:40 10/06/18 04:40 Laboratory results interpreted by me: 10/06/18 04:40 Potassium 3.3 L - EKG Interpretation by Me Additional EKG results interpreted by me: 10/06/18 04:41 EKG is reviewed and interpreted by me. EKG shows sinus tachycardia with a rate of [address] segment elevation or depression. [place] interval, QRS duration, QT intervals are within normal range. Old EKG for comparison is from November 30, 2017. Discharge - Discharge Clinical Impression: Dizziness, Tachycardia Benzodiazepine withdrawal Qualifiers: Complication of substance-induced condition: with unspecified complication Qualified Code(s): F13.239 - Sedative, hypnotic or anxiolytic dependence with withdrawal, unspecified Condition: Good Disposition: HOME, SELF-CARE Additional Instructions: Please take your Klonopin as prescribed. Please follow-up with your doctor on the sixth at your upcoming appointment to continue prescribing your Klonopin. I have written a prescription to get you through until then. Please return to ER if you have recurrence of your symptoms, heartbeat, chest pain, difficulty breathing, vomiting, seizure, or feel unwell. Prescriptions: Clonazepam [Klonopin] 0.5 mg PO BID #10 tablet
[2018-10-06 05:05] LABS: ABSOLUTE BASOPHILS # (AUTO) 0.1 10^3/uL (0.0-0.2); ABSOLUTE EOSINOPHILS # (AUTO) 0.3 10^3/uL (0.0-0.6); ABSOLUTE MONOCYTES (AUTO) 0.6 10^3/uL (0.1-1.4); ABSOLUTE NEUT (AUTO) 4.5 10^3/uL (1.7-8.2); BASOPHILS % (AUTO) 1.2 % (0-2); EOSINOPHILS % (AUTO) 3.6 % (0-6); HEMATOCRIT 37.4 % (36.0-47.0); HEMOGLOBIN 12.5 g/dL (12.0-15.5); LYMPHOCYTES % (AUTO) 26.1 % (13-45); MEAN CORPUSCULAR HGB CONC 33.4 g/dL (32.0-36.0); MEAN CORPUSCULAR VOLUME 87 fl (80-97); MONOCYTES % (AUTO) 8.4 % (3-13); PLATELET COUNT 349 10^3/uL (150-450); RED BLOOD COUNT 4.32 10^6/uL (3.72-5.28); RED CELL DISTRIBUTION WIDTH 13.8 % (11.5-14.0); SEGMENTED NEUTROPHILS % (AUTO) 60.7 % (42-78); TOTAL CELLS COUNTED % (AUTO) 100 %; WHITE BLOOD COUNT 7.5 10^3/uL (4.0-10.5)
[2018-10-06 05:25] LABS: ANION GAP 7 (5-19); BLOOD UREA NITROGEN 11 mg/dL (7-20); CALCIUM 9.3 mg/dL (8.4-10.2); CARBON DIOXIDE 28 mmol/L (22-30); CHLORIDE 105 mmol/L (98-107); GLUCOSE 82 mg/dL (75-110); POTASSIUM 3.3 mmol/L (3.6-5.0)
[2018-10-06] MEDS ORDERED: POTASSIUM CHLORIDE 10 MEQ CAPSULE.ER PO ONE (05:53)
[2018-10-06 06:28] VITALS: BP 122/92
--- NOTE | 2018-10-06 11:12 | EKG REPORT ---
SEVERITY:- BORDERLINE ECG - SINUS TACHYCARDIA BORDERLINE T ABNORMALITIES, DIFFUSE LEADS : Confirmed by: Helen Manley MD 06-Oct-2018 11:11:56
== END 2018-10-06 06:48 | disposition home or self-care (01) ==
LOC: ER 03:13
DX: R42 Dizziness and giddiness (principal); R00.0 Tachycardia, unspecified; F13.239 Sedative, hypnotic or anxiolytic dependence with withdrawal, unspecified; Z79.899 Other long term (current) drug therapy; I10 Essential (primary) hypertension; F17.200 Nicotine dependence, unspecified, uncomplicated
CPT/HCPCS: 93005; 99284; 36415; 83735; 85025; 80048; 93010; J3490

== ENCOUNTER → 2018-10-24 | Outpatient (CLI) | payer MEDICAID ==
[2018-10-24 11:31] LABS: HEMATOCRIT 34.4 % (36.0-47.0); HEMOGLOBIN 11.7 g/dL (12.0-15.5); MEAN CORPUSCULAR HEMOGLOBIN 29.5 pg (27.0-33.4); MEAN CORPUSCULAR HGB CONC 34.1 g/dL (32.0-36.0); MEAN CORPUSCULAR VOLUME 86 fl (80-97); PLATELET COUNT 355 10^3/uL (150-450); RED BLOOD COUNT 3.98 10^6/uL (3.72-5.28); RED CELL DISTRIBUTION WIDTH 13.6 % (11.5-14.0); WHITE BLOOD COUNT 6.1 10^3/uL (4.0-10.5)
[2018-10-24 11:55] LABS: ALBUMIN 3.8 g/dL (3.5-5.0); ALKALINE PHOSPHATASE 113 U/L (38-126); ANION GAP 7 (5-19); ASPARTATE AMINO TRANSFERASE 14 U/L (14-36); BILIRUBIN,DIRECT 0.2 mg/dL (0.0-0.4); BILIRUBIN,TOTAL 0.4 mg/dL (0.2-1.3); BLOOD UREA NITROGEN 12 mg/dL (7-20); CALCIUM 9.4 mg/dL (8.4-10.2); CARBON DIOXIDE 27 mmol/L (22-30); CHLORIDE 106 mmol/L (98-107); CHOLESTEROL 197.03 mg/dL (0-200); GLUCOSE 90 mg/dL (75-110); POTASSIUM 4.2 mmol/L (3.6-5.0); TOTAL PROTEIN 6.9 g/dL (6.3-8.2); TRIGLYCERIDES 63 mg/dL (<150)
[2018-10-24 12:06] LABS: DIRECT LDL 146 mg/dL (<100)
== END ==
LOC: LAB 11:06
PROVIDERS: ATTEND Internal Medicine Cardiovascular Disease
DX: I10 Essential (primary) hypertension (principal); R07.9 Chest pain, unspecified; R00.2 Palpitations; E78.5 Hyperlipidemia, unspecified; E66.01 Morbid (severe) obesity due to excess calories
CPT/HCPCS: 36415; 80048; 80061; 80076; 83735; 84443; 85027

== ENCOUNTER → 2018-12-10 | Outpatient (CLI) | payer MEDICAID ==
[2018-12-10 13:20] LABS: ALKALINE PHOSPHATASE 114 U/L (38-126); ANION GAP 7 (5-19); ASPARTATE AMINO TRANSFERASE 16 U/L (14-36); BILIRUBIN,DIRECT 0.2 mg/dL (0.0-0.4); BILIRUBIN,TOTAL 0.3 mg/dL (0.2-1.3); BLOOD UREA NITROGEN 10 mg/dL (7-20); CALCIUM 10.1 mg/dL (8.4-10.2); CARBON DIOXIDE 28 mmol/L (22-30); CHLORIDE 104 mmol/L (98-107); GLUCOSE 85 mg/dL (75-110); POTASSIUM 4.4 mmol/L (3.6-5.0); TOTAL PROTEIN 7.5 g/dL (6.3-8.2); TRIGLYCERIDES 64 mg/dL (<150)
[2018-12-10 13:31] LABS: DIRECT LDL 108 mg/dL (<100)
== END ==
LOC: LAB 12:19
PROVIDERS: ATTEND Physician Assistant
DX: E78.5 Hyperlipidemia, unspecified (principal); I10 Essential (primary) hypertension; Z79.899 Other long term (current) drug therapy
CPT/HCPCS: 36415; 80048; 80061; 80076

== ENCOUNTER → 2019-01-04 | Outpatient (CLI) | payer MEDICAID ==
[2019-01-04 11:34] LABS: ANION GAP 7 (5-19); BLOOD UREA NITROGEN 13 mg/dL (7-20); CALCIUM 9.3 mg/dL (8.4-10.2); CARBON DIOXIDE 26 mmol/L (22-30); CHLORIDE 105 mmol/L (98-107); GLUCOSE 110 mg/dL (75-110)
== END ==
LOC: LAB 10:41
PROVIDERS: ATTEND Internal Medicine Cardiovascular Disease
DX: I10 Essential (primary) hypertension (principal); Z79.899 Other long term (current) drug therapy
CPT/HCPCS: 36415; 80048

== ENCOUNTER 2019-12-25 16:52 | Emergency (ER) | payer MEDICAID ==
[2019-12-25 17:19] VITALS: BP 142/94
[2019-12-25] MEDS ORDERED: IPRATROPIUM/ALBUTEROL 0.5-2.5 MG/3 ML AMPUL NEB ONE (17:55)
--- NOTE | 2019-12-25 17:57 | ER Document Report ---
ED Medical Screen (RME) - General Chief Complaint: Cough Stated Complaint: COUGH,CONGESTION Time Seen by Provider: 12/25/19 17:52 Primary Care Provider: PHILIP SAMANIEGO MD [Primary Care Provider] - Follow up as needed Information source: Patient Notes: Patient presents complaining of cough and congestion for the past week. Patient reports occasional lightheadedness. Patient denies any fever or chest pain. Patient denies any nausea vomiting or diarrhea. Patient does have a history of hypertension and is 1/2 pack/day smoker. Patient denies any history of COPD. I have greeted and performed a rapid initial assessment of this patient. A comprehensive ED assessment and evaluation of the patient, analysis of test results and completion of the medical decision making process will be conducted by additional ED providers. TRAVEL OUTSIDE OF THE [place] IN LAST 30 DAYS: No - Related Data Allergies/Adverse Reactions: prednisone Adverse Reaction (Verified 05/02/18 11:35) Shortness of Breath Past Medical History - Past Medical History Cardiac Medical History: Reports: Hx Hypertension Renal/ Medical History: Denies: Hx Peritoneal Dialysis Psychiatric Medical History: Reports: Hx Depression Past Surgical History: Reports: Hx Section, Hx Cholecystectomy - Immunizations Immunizations up to date: Yes Hx Diphtheria, Pertussis, Tetanus Vaccination: Yes Physical Exam - Vital signs Vitals: Temp Pulse Resp BP Pulse Ox 98.2 F 95 16 142/94 H 97 12/25/19 17:17 12/25/19 17:17 12/25/19 17:17 12/25/19 17:17 12/25/19 17:17 - Respiratory Respiratory status: No respiratory distress Breath sounds: Nonproductive cough, Wheezing Course - Vital Signs Vital signs: Temp Pulse Resp BP Pulse Ox 98.2 F 95 16 142/94 H 97 12/25/19 17:17 12/25/19 17:17 12/25/19 17:17 12/25/19 17:17 12/25/19 17:17 Doctor's Discharge - Discharge Referrals: PHILIP SAMANIEGO MD [Primary Care Provider] - Follow up as needed
--- NOTE | 2019-12-25 18:41 | RADIOLOGY REPORT (SQ) ---
EXAM DESCRIPTION: CHEST SINGLE VIEW IMAGES COMPLETED DATE/TIME: 12/25/2019 6:30 pm REASON FOR STUDY: cough, sob COMPARISON: 01/05/2018 EXAM PARAMETERS: NUMBER OF VIEWS: One view. TECHNIQUE: Single frontal radiographic view of the chest acquired. RADIATION DOSE: NA LIMITATIONS: None. FINDINGS: LUNGS AND PLEURA: No opacities, masses or pneumothorax. No pleural effusion. MEDIASTINUM AND HILAR STRUCTURES: No masses. Contour normal. HEART AND VASCULAR STRUCTURES: Heart normal in size. Normal vasculature. BONES: No acute findings. HARDWARE: None in the chest. OTHER: No other significant finding. IMPRESSION: NO ACUTE RADIOGRAPHIC FINDING IN THE CHEST. TECHNICAL DOCUMENTATION: JOB ID: [id number] 2010 [employer]- All Rights Reserved Reading location - IP/workstation name: [email or web address]
[2019-12-25] MEDS: ALBUTEROL SULFATE 0.083% NEB 2.5 MG/3 ML AMPUL NEB SCH ×2 (19:04→19:06)
[2019-12-25 19:31] LABS: ABSOLUTE BASOPHILS # (AUTO) 0.1 10^3/uL (0.0-0.2); ABSOLUTE EOSINOPHILS # (AUTO) 0.2 10^3/uL (0.0-0.6); ABSOLUTE LYMPHOCYTES (AUTO) 1.9 10^3/uL (0.5-4.7); ABSOLUTE MONOCYTES (AUTO) 0.5 10^3/uL (0.1-1.4); ABSOLUTE NEUT (AUTO) 4.9 10^3/uL (1.7-8.2); BASOPHILS % (AUTO) 0.9 % (0-2); EOSINOPHILS % (AUTO) 3.1 % (0-6); HEMATOCRIT 35.2 % (36.0-47.0); HEMOGLOBIN 12.2 g/dL (12.0-15.5); LYMPHOCYTES % (AUTO) 24.9 % (13-45); MEAN CORPUSCULAR HEMOGLOBIN 29.6 pg (27.0-33.4); MEAN CORPUSCULAR HGB CONC 34.6 g/dL (32.0-36.0); MEAN CORPUSCULAR VOLUME 86 fl (80-97); MONOCYTES % (AUTO) 6.6 % (3-13); PLATELET COUNT 334 10^3/uL (150-450); RED BLOOD COUNT 4.11 10^6/uL (3.72-5.28); RED CELL DISTRIBUTION WIDTH 14.3 % (11.5-14.0); SEGMENTED NEUTROPHILS % (AUTO) 64.5 % (42-78); TOTAL CELLS COUNTED % (AUTO) 100 %; WHITE BLOOD COUNT 7.6 10^3/uL (4.0-10.5)
[2019-12-25 19:43] LABS: ALBUMIN 3.9 g/dL (3.5-5.0); ALKALINE PHOSPHATASE 140 U/L (38-126); ANION GAP 8 (5-19); ASPARTATE AMINO TRANSFERASE 20 U/L (14-36); BILIRUBIN,DIRECT 0.3 mg/dL (0.0-0.4); BILIRUBIN,TOTAL 0.4 mg/dL (0.2-1.3); BLOOD UREA NITROGEN 15 mg/dL (7-20); CALCIUM 9.7 mg/dL (8.4-10.2); CARBON DIOXIDE 27 mmol/L (22-30); CHLORIDE 105 mmol/L (98-107); GLUCOSE 93 mg/dL (75-110); POTASSIUM 4.3 mmol/L (3.6-5.0); TOTAL PROTEIN 7.3 g/dL (6.3-8.2)
--- NOTE | 2019-12-25 19:47 | ER Document Report ---
ED General - General Chief Complaint: Cough Stated Complaint: COUGH,CONGESTION Time Seen by Provider: 12/25/19 17:52 Primary Care Provider: PHILIP SAMANIEGO MD [Primary Care Provider] - Follow up as needed Mode of Arrival: Ambulatory Information source: Patient Notes: 44-year-old obese -[place] female who smokes here with cough and congestion for the past week. No fevers or shaking chills. No nausea or vomiting. No loss of smell or taste. No sick contacts. States she gets bronchitis a couple times a year. Does not have asthma or COPD at baseline. TRAVEL OUTSIDE OF THE [place] IN LAST 30 DAYS: No - Related Data Allergies/Adverse Reactions: prednisone Adverse Reaction (Verified 05/02/18 11:35) Shortness of Breath Past Medical History - General Information source: Patient - Social History Smoking Status: Current Every Day Smoker Family History: Reviewed & Not Pertinent - Past Medical History Cardiac Medical History: Reports: Hx Hypertension Renal/ Medical History: Denies: Hx Peritoneal Dialysis Psychiatric Medical History: Reports: Hx Depression Past Surgical History: Reports: Hx Section, Hx Cholecystectomy - Immunizations Immunizations up to date: Yes Hx Diphtheria, Pertussis, Tetanus Vaccination: Yes Review of Systems - Review of Systems Notes: Constitutional: No fevers. No chills. EENT: No eye redness. No eye pain. No ear pain. No sore throat. Cardiovascular: No chest pain. No palpitations. Respiratory: + cough and congestion Gastrointestinal: No abdominal pain. No nausea, vomiting, or diarrhea. Genitourinary: Atraumatic. No lesions. No pain. No discharge. Musculoskeletal: Atraumatic. No swelling. No deformities. Skin: No rash or lesions. Lymphatic: No swollen lymph nodes. Neurologic: No headache. No syncope. Psychiatric: No suicidal or homicidal ideation. Physical Exam - Vital signs Vitals: Temp Pulse Resp BP Pulse Ox 98.2 F 95 16 142/94 H 97 12/25/19 17:17 12/25/19 17:17 12/25/19 17:17 12/25/19 17:17 12/25/19 17:17 - Notes Notes: General: Well-developed, well-nourished. In no acute distress. Non-toxic appearing. Cardiac: Well-perfused. Regular rate and rhythm. No murmurs, rubs, or gallops. Pulmonary: No respiratory distress. No cyanosis. Bilateral lung will with rhonchi and slight wheezing Abdominal: Non-distended. Non-rigid. Bowels sounds are present in all four quadrants. No guarding or rebound. HEENT: Head is atraumatic. Conjunctivae not reddened. No tearing. PERRL. EOMI. Orbits atraumatic. No periorbital swelling or erythema. Oropharynx is without erythema, swelling, or exudates. Neck: Supple. No adenopathy. No meningismus. Dermatologic: Warm with good turgor. No rash. Atraumatic. Chest: Atraumatic. No chest wall tenderness to palpation. Musculoskeletal: Moves all extremities well. No range of motion deficits. no muscular or joint tenderness. No paraspinal muscle tenderness. no midline spinal tenderness or step-off. Genitourinary: Examination deferred Neurologic: No gross neurologic deficits. Psychiatric: Normal mood. Course - Re-evaluation Re-evalutation: 12/25/19 19:46 Patient has a normal chest x-ray. She has rhonchi and wheezing on auscultation. Suspect bronchitis. Patient states she cannot take steroids. 12/25/19 19:46 12/25/19 19:49 Patient is feeling better after nebulizer treatment. She is opposed to taking any steroids orally or parenterally because of previous reaction. I encouraged her to quit smoking. We will put her on metered dose inhaler 2 puffs every 4 hours as needed and will discharge - Vital Signs Vital signs: Temp Pulse Resp BP Pulse Ox 98.2 F 95 16 142/94 H 97 12/25/19 17:17 12/25/19 17:17 12/25/19 17:17 12/25/19 17:17 12/25/19 17:17 - Laboratory Result Diagrams: 12/25/19 19:00 12/25/19 19:00 Laboratory results interpreted by me: 12/25/19 12/25/19 19:00 19:00 Hct 35.2 L RDW 14.3 H Est GFR (MDRD) Non-Af 54 L Alkaline Phosphatase 140 H - Diagnostic Test Radiology reviewed: Reports reviewed Discharge - Discharge Clinical Impression: Bronchitis, Elevated blood pressure reading, Tobacco abuse Condition: Good Disposition: HOME, SELF-CARE Instructions: Bronchitis ([facility]) Additional Instructions: Please quit smoking. This will help with your breathing. Albuterol inhaler 2 puffs every 4 hours as needed for shortness of breath or cough. You may ask the pharmacist at your pharmacy of choice if they have a recommendation for a cough syrup if needed. Prescriptions: Albuterol Sulfate [Proair HFA Inhalation Aerosol 8.5 gm MDI] 2 puff IH Q4H PRN #1 mdi PRN Reason: Forms: Smoking Cessation Education Referrals: PHILIP SAMANIEGO MD [Primary Care Provider] - Follow up as needed
[2019-12-25 19:49] LABS: A TYPE INFLUENZA AG NEGATIVE (NEGATIVE); B INFLUENZA AG NEGATIVE (NEGATIVE)
--- NOTE | 2019-12-26 17:54 | EKG REPORT ---
SEVERITY:- NORMAL ECG - SINUS RHYTHM : Confirmed by: Marko Kat MD 26-Dec-2019 17:53:52
== END 2019-12-25 20:14 | disposition home or self-care (01) ==
LOC: ER 16:52
DX: J40 Bronchitis, not specified as acute or chronic (principal); R05 Cough; R06.2 Wheezing; I10 Essential (primary) hypertension; F17.200 Nicotine dependence, unspecified, uncomplicated
CPT/HCPCS: 93005; 94640 ×2; 99285; 36415; 85025; 80053; 87804; 71045; 93010; J7613